=== PATIENT | male | born 1960 | race Caucasian/White ===

== ENCOUNTER 2025-01-02 11:37 | Emergency (ER) | payer OTHER, SELFPAY ==
[2025-01-02 11:37] VITALS: BMI 22.7
[2025-01-02 11:39] VITALS: BP 119/72
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
[2025-01-02] MEDS: PERCOCET 5/325 1 TABLET PO (13:00)
== END 2025-01-02 13:13 | disposition home or self-care (01) ==
LOC: EMR 11:37
PROVIDERS: EMERGENCY PHYSICIAN Student in an Organized Health Care Education/Training Program; FAMILY PHYSICIAN Family Medicine
DX: S76.112A Strain of left quadriceps muscle, fascia and tendon, initial encounter (principal); M17.12 Unilateral primary osteoarthritis, left knee; I10 Essential (primary) hypertension; F17.200 Nicotine dependence, unspecified, uncomplicated; W22.09XA Striking against other stationary object, initial encounter; Y93.55 Activity, bike riding
CPT/HCPCS: 99283; 29505; 73564

== ENCOUNTER 2025-03-07 06:21 | Day surgery (SDC) | payer OTHER, SELFPAY ==
[2025-02-16 13:49] VITALS: BMI 18.6
[2025-03-07] VITALS (8 sets, daily range): BP systolic 111–135; BP diastolic 70–84; BMI 18.6
[2025-03-07] MEDS: TYLENOL 1000 MG PO (08:42)
[2025-03-07] MEDS: HEPARIN 5000 UNITS SC (08:43)
[2025-03-07] MEDS: NORMOSOL-R/PLASMALYTE-A 1000 IV (08:43)
--- NOTE | 2025-03-07 11:23 | W.IMMPOSTOP ---
Surgical Immed Post Op Note
-
Primary Surgeon: Hemalatha
Assisting: Nirali CUMMINGS
Pre-op Diagnosis: Incarcerated umbilical hernia
Post-op Diagnosis: Same
Procedure Performed: Robot assisted laparoscopic repair incarcerated umbilical hernia (rTAPP)
Anesthesia Type: GETA
Specimen / Cultures: None
Estimated Blood Loss: 5cc
Complications: None immediate
Operative Findings: 1.5cm umbilical hernia with incarcerated fat, able to reduce after induction; poor flap integrity, 11cm round ventralight ST flap defects sutured to mesh
--- NOTE | 2025-03-07 11:25 | OR.RPT ---
Addendum entered and electronically signed by Jesus Penny MD 03/07/25 14:07:
12mm trocar site was closed laparoscopically with 2-0 PDS stratafix suture.
Original Note:
Operative Report
Operative Report
Primary Surgeon: Hemalatha
Assisting: Nirali CUMMINGS
Pre-op Diagnosis: Incarcerated umbilical hernia
Post-op Diagnosis: Same
Procedure Performed: Robot assisted laparoscopic repair incarcerated umbilical hernia (rTAPP)
Anesthesia Type: GETA
Specimen / Cultures: None
Estimated Blood Loss: 5cc
Complications: None immediate
Operative Findings: 1.5cm umbilical hernia with incarcerated fat, able to reduce after induction; poor flap integrity, 11cm round ventralight ST flap defects sutured to mesh
DOS: 03/07/25
Indications:� This 64M developed an incarcerated umbilical hernia. Robot assisted laparoscopic repair was planned.
Description of procedure:� The patient was taken to the operating room and positioned into supine position. The patient�s abdomen was prepped and draped in standard sterile fashion. A time-out was completed verifying correct patient, procedure,
site, positioning, and implants and special equipment prior to beginning this procedure.� After induction and prior to prep, the hernia was reduced and the groins were inspected by palpation and no defects were palpated. A stab incision was made in
the left upper quadrant, a Veress needle was inserted and proper position was confirmed by aspiration and saline drop test. Following this, pneumoperitoneum was created with insufflation of carbon dioxide to 12 mmHg. Then a 8mm robotic trocar was
inserted at the left anterior axillary line. The laparoscope was inserted and no injuries were identified in the area. Under direct visualization, two 8mm trocars were placed a hand's breadth inferior to the initial trocar and a hand's breadth
inferior to the second trocar in succession.
The groins were inspected and no hernias were identified. Attention was turned to the defect. The peritoneum was incised several cm superior to the defect and a peritoneal flap was developed in transverse and caudad directions using blunt and sharp
dissection and judicious electrocautery. The defect measured as above. Incarcerated fat was reduced and the defect was closed with 0 PDS stratafix suture. The flap broke down in several areas and was of very poor integrity. The left upper trocar
was upsized to 12mm. Mesh was passed into the abdomen and centered on the defect, a suture passer was used to grasp the stay suture and elevate the mesh to the abdominal wall where it was clamped. The mesh was secured to the abdominal wall with 2-0
PDS stratafix suture. The flap was closed over the mesh and secured with 2-0 monocryl stratafix suture. Flap defects werre sutured to the mesh. A transversus abdominis plane block was then performed under laparoscopic vision with marcaine/decadron.
After ensuring adequate hemostasis, the trocars were removed and the pneumoperitoneum allowed to escape. The trocar incisions were closed at the skin level using 4-0 monocryl and topical skin adhesive. All counts were correct. The patient tolerated
the procedure well and was taken to the postanesthesia care unit in stable condition.
The assistance of Nirali CUMMINGS was required due to the complexity of the procedure. During the procedure she assisted with retraction, resection, and closure of the wound.
[2025-03-07] MEDS: ROXICODONE 5 MG PO (12:37)
== END 2025-03-07 13:50 | disposition home or self-care (01) ==
LOC: SDS 06:21
PROVIDERS: ATTENDING PHYSICIAN Surgery; FAMILY PHYSICIAN Family Medicine
DX: K42.0 Umbilical hernia with obstruction, without gangrene (principal)
CPT/HCPCS: 49592; 36415; 93005; C1781